=== PATIENT | female | born 1950 | race Caucasian/White ===

== ENCOUNTER 2019-11-15 00:20 | Inpatient (IN) ==
[2019-11-15 00:57] LABS: Basophils # 0.1 10*3/uL (0.0-0.2); Basophils % 1.1 % (0.0-0.8); Eosinophils # 0.5 10*3/uL (0.0-0.87); Eosinophils % 4.7 % (0.00-10.9); Hematocrit 37.4 VOL% (35.7-47.0); Hemoglobin 12.4 GM/DL (12.0-16.0); Immature Granulocytes % 0.5 %; Immature Granulocytes Absolute 0.05 #; Lymphocytes # 2.5 10*3/uL (1.4-4.0); Lymphocytes % 24.4 % (21.3-54.2); Mean Corpuscular HGB Conc 33.2 GM/DL (32-36); Mean Corpuscular Volume 84.8 FL (87-102); Neutrophils % 59.3 % (38.7-73.9); Platelet Count 252 T/CUMM (130-400); Red Blood Count 4.41 MC/CUMM (3.8-5.5); Red Cell Distribution Width 11.9 % (9.3-17.3); White Blood Count 10.2 T/CUMM (4-12)
[2019-11-15] MEDS ORDERED: ALBUTEROL 2.5 MG/3 ML NEB RESP TX STA (01:04)
[2019-11-15 01:08] LABS: INR 0.9; PT Patient Result 10.2 SECS (9.8-11.9)
[2019-11-15 01:17] LABS: ABG Base Excess -1.9 MMOL/L (-2.5-2.5); ABG HCO3 22.9 MMOL/L (20-26); ABG Oxygen Saturation 98.8 % (95-100); ABG PCO2 48.8 MM HG (35-48); ABG PH 7.315 (7.35-7.45); ABG TCO2 22.1 MMOL/L (23-27); Allen Test Positive
[2019-11-15 01:21] LABS: Alanine Aminotransferase 19 U/L (13-56); Albumin 3.8 G/DL (3.4-5.0); Alkaline Phosphatase 50 U/L (45-117); Aspartate Amino Transferase 15 U/L (0-37); Blood Urea Nitrogen 11 MG/DL (7-18); Calcium 8.9 MG/DL (8.5-10.1); Estimated Glom Filtration Rate 93 ML/MIN; Glucose 110 MG/DL (74-106); Osmolality,Calculated 265.4 MOS/KG (273-304); Total Protein 6.1 G/DL (6.4-8.3)
[2019-11-15 01:23] LABS: Acetaminophen < 2.0 UG/ML (10-30); Salicylate < 2.8 MG/DL (2.8-20)
[2019-11-15] MEDS ORDERED: NALOXONE 0.4 MG/ML VIAL ONE (01:30)
[2019-11-15] MEDS ORDERED: NALOXONE 0.4 MG/ML VIAL IV STA (01:30)
[2019-11-15 01:35] LABS: Apearance,Urine CLEAR (Clear); Bilirubin,Urine Negative (Negative); Blood, Urine Negative (Negative); Glucose,Urine (UA) Negative (Negative); Ketones,Urine Negative (Negative); Mucus,Urine Occasional /LPF (Occasional); Nitrite,Urine Negative (Negative); Protein,Urine Negative; RBC,Urine <1 /HPF (0-4); Urine Color Straw (Yellow); Urine Specific Gravity 1.008 (1.001-1.035); Urine Urobilinogen < 2.0 EU/DL (0.2-1.0)
[2019-11-15] MEDS ORDERED: ETOMIDATE 20 MG/10 ML VIAL IV ONE (01:35)
[2019-11-15] MEDS ORDERED: ROCURONIUM 100 MG/10 ML VIAL IV ONE (01:36)
[2019-11-15 01:37] LABS: Barbiturates Screen,Urine Negative (Negative); Benzodiazepines Screen,Urine Negative (Negative); Cannabinoid Screen,Urine Negative (Negative); Opiate Screen,Urine Positive (Negative); Phencyclidine Screen,Urine Negative (Negative)
[2019-11-15 02:09] LABS: ABG Base Excess -2.2 MMOL/L (-2.5-2.5); ABG HCO3 22.6 MMOL/L (20-26); ABG Oxygen Saturation 99.1 % (95-100); ABG PCO2 47.9 MM HG (35-48); ABG PH 7.317 (7.35-7.45); ABG TCO2 21.6 MMOL/L (23-27); Allen Test Positive; Pt O2 Delivery Device Ventilator
[2019-11-15] MEDS ORDERED: ALBUTEROL 2.5 MG/3 ML NEB RESP TX PRN (02:55)
[2019-11-15] MEDS ORDERED: ONDANSETRON 4 MG/2 ML VIAL IV PRN (02:55)
[2019-11-15] MEDS ORDERED: PROMETHAZINE 25 MG/1 ML VIAL IM PRN (02:55)
[2019-11-15] MEDS ORDERED: SODIUM CHLORIDE 0.9% 1,000 ML IV SCH (03:00)
[2019-11-15] MEDS ORDERED: LORazepam INJ 40 MG in DEXTROSE 5% 30 ML IV PRN (03:10)
[2019-11-15] MEDS ORDERED: hydrALAZINE 20 MG/1 ML VIAL IV PRN (03:11)
[2019-11-15] MEDS ORDERED: THIAMINE 200 MG/2 ML VIAL IV STA (03:16)
[2019-11-15] MEDS: ENOXAPARIN 40 MG/0.4 ML SYRINGE SUBCUT SCH (03:45)
[2019-11-15] MEDS: PANTOPRAZOLE 40 MG VIAL IV SCH (04:00)
[2019-11-15 04:35] LABS: Basophils # 0.1 10*3/uL (0.0-0.2); Basophils % 0.7 % (0.0-0.8); Eosinophils # 0.2 10*3/uL (0.0-0.87); Eosinophils % 2.3 % (0.00-10.9); Hematocrit 35.2 VOL% (35.7-47.0); Hemoglobin 11.6 GM/DL (12.0-16.0); Immature Granulocytes % 0.6 %; Immature Granulocytes Absolute 0.04 #; Lymphocytes # 1.4 10*3/uL (1.4-4.0); Lymphocytes % 19.2 % (21.3-54.2); Mean Corpuscular Volume 84.6 FL (87-102); Mean Platelet Volume 9.8 FL (9.6-12.0); Monocytes % 7.9 % (1.7-12.7); Neutrophils % 69.3 % (38.7-73.9); Platelet Count 231 T/CUMM (130-400); Red Blood Count 4.16 MC/CUMM (3.8-5.5); Red Cell Distribution Width 11.9 % (9.3-17.3)
[2019-11-15 04:40] LABS: White Blood Count 7.1 T/CUMM (4-12)
[2019-11-15 05:01] LABS: Calcium 7.4 MG/DL (8.5-10.1); Osmolality,Calculated 266.4 MOS/KG (273-304)
[2019-11-15 05:21] VITALS: BP 147/93
[2019-11-15] MEDS: THIAMINE INJ 100 MG, FOLIC ACID INJ 1 MG, MAGNESIUM SULF INJ 2 GM, MULTIVITAMIN INJ 10 ... IV SCH (05:47)
[2019-11-15] MEDS ORDERED: POTASSIUM CHLORIDE 20 MEQ TABLET PO ONE (07:02)
[2019-11-15] MEDS ORDERED: MAGNESIUM SULF RIDER 4 GM in PREMIX 1 EACH IV ONE (07:02)
[2019-11-15] MEDS ORDERED: POTASSIUM CHLORIDE 20 MEQ/15 ML UDCUP PER TUBE ONE (07:46)
[2019-11-15] MEDS: POTASSIUM CHLORIDE RIDER 10 MEQ in PREMIX 1 EACH IV SCH ×4 (07:51→11:15)
[2019-11-15] MEDS: MAGNESIUM OXIDE 400 MG TABLET PO SCH ×2 (08:21→20:09)
[2019-11-16] MEDS: THIAMINE INJ 100 MG, FOLIC ACID INJ 1 MG, MAGNESIUM SULF INJ 2 GM, MULTIVITAMIN INJ 10 ... IV SCH (03:19)
[2019-11-16 03:21] LABS: Basophils # 0.1 10*3/uL (0.0-0.2); Basophils % 0.3 % (0.0-0.8); Eosinophils % 0.2 % (0.00-10.9); Hematocrit 38.4 VOL% (35.7-47.0); Hemoglobin 13.3 GM/DL (12.0-16.0); Immature Granulocytes % 0.5 %; Lymphocytes % 5.1 % (21.3-54.2); Mean Corpuscular HGB Conc 34.6 GM/DL (32-36); Mean Corpuscular Volume 82.4 FL (87-102); Mean Platelet Volume 10.1 FL (9.6-12.0); Monocytes % 8.1 % (1.7-12.7); Neutrophils % 85.8 % (38.7-73.9); Platelet Count 283 T/CUMM (130-400); Red Blood Count 4.66 MC/CUMM (3.8-5.5); Red Cell Distribution Width 12.1 % (9.3-17.3)
[2019-11-16] MEDS: PANTOPRAZOLE 40 MG VIAL IV SCH (03:25)
[2019-11-16] MEDS: ENOXAPARIN 40 MG/0.4 ML SYRINGE SUBCUT SCH (03:26)
[2019-11-16 03:41] LABS: Albumin 3.1 G/DL (3.4-5.0); Bilirubin,Total 0.6 MG/DL (0.2-1.0); Calcium 7.8 MG/DL (8.5-10.1); Osmolality,Calculated 254.2 MOS/KG (273-304)
[2019-11-16 04:53] LABS: ABG Base Excess -1.3 MMOL/L (-2.5-2.5); ABG HCO3 23.4 MMOL/L (20-26); ABG Oxygen Saturation 98.7 % (95-100); ABG PCO2 30.2 MM HG (35-48); ABG TCO2 18.6 MMOL/L (23-27); Allen Test Positive; Pt O2 Delivery Device Ventilator
[2019-11-16] MEDS ORDERED: LORazepam 2 MG/1 ML VIAL IV PRN ×2 (09:01→13:43)
[2019-11-16] MEDS: LORazepam 2 MG/1 ML VIAL IV PRN ×4 (11:15→22:08)
[2019-11-16] MEDS ORDERED: ZIPRASIDONE 20 MG/1 ML VIAL IM ONE (11:55)
[2019-11-16] MEDS ORDERED: HALOPERIDOL 5 MG/ML AMP IM ONE ×2 (11:55→16:41)
[2019-11-16] MEDS ORDERED: FUROSEMIDE 20 MG/2 ML VIAL IV ONE (13:46)
[2019-11-16] MEDS ORDERED: methylPREDNISolone SOD SUC 125 MG/2 ML VIAL IV ONE (15:35)
[2019-11-16] MEDS ORDERED: ALBUTEROL/IPRATROPIUM 3 ML NEB RESP TX PRN (15:37)
[2019-11-16] MEDS: chlordiazePOXIDE 10 MG CAPSULE PO SCH ×2 (16:58→20:14)
[2019-11-16] MEDS: MORPHINE 4 MG/1 ML VIAL IV PRN (17:26)
[2019-11-16] MEDS: HALOPERIDOL 5 MG/ML AMP IM PRN (19:45)
[2019-11-16] MEDS: ZIPRASIDONE 20 MG/1 ML VIAL IM PRN (19:46)
[2019-11-16] MEDS: methylPREDNISolone SOD SUC 40 MG/1 ML VIAL IV SCH (23:22)
[2019-11-17] MEDS: LORazepam 2 MG/1 ML VIAL IV PRN (01:16)
[2019-11-17] MEDS: MORPHINE 4 MG/1 ML VIAL IV PRN ×2 (01:16→16:35)
[2019-11-17] MEDS: HALOPERIDOL 5 MG/ML AMP IM PRN ×3 (02:39→19:25)
[2019-11-17] MEDS: PANTOPRAZOLE 40 MG VIAL IV SCH (02:39)
[2019-11-17] MEDS: THIAMINE INJ 100 MG, FOLIC ACID INJ 1 MG, MAGNESIUM SULF INJ 2 GM, MULTIVITAMIN INJ 10 ... IV SCH ×2 (02:40→18:27)
[2019-11-17] MEDS: ZIPRASIDONE 20 MG/1 ML VIAL IM PRN ×3 (02:40→16:47)
[2019-11-17] MEDS: ENOXAPARIN 40 MG/0.4 ML SYRINGE SUBCUT SCH (02:40)
[2019-11-17 03:43] LABS: Basophils % 0.1 % (0.0-0.8); Hematocrit 36.3 VOL% (35.7-47.0); Hemoglobin 12.3 GM/DL (12.0-16.0); Immature Granulocytes % 0.5 %; Immature Granulocytes Absolute 0.07 #; Lymphocytes # 0.5 10*3/uL (1.4-4.0); Lymphocytes % 3.3 % (21.3-54.2); Mean Corpuscular HGB Conc 33.9 GM/DL (32-36); Mean Corpuscular Volume 82.7 FL (87-102); Mean Platelet Volume 10.3 FL (9.6-12.0); Monocytes % 4.8 % (1.7-12.7); Neutrophils % 91.3 % (38.7-73.9); Platelet Count 246 T/CUMM (130-400); Red Blood Count 4.39 MC/CUMM (3.8-5.5); Red Cell Distribution Width 12.5 % (9.3-17.3); White Blood Count 13.9 T/CUMM (4-12)
[2019-11-17 04:13] LABS: Albumin 2.9 G/DL (3.4-5.0); Bilirubin,Total 0.5 MG/DL (0.2-1.0); Calcium 8.2 MG/DL (8.5-10.1); Osmolality,Calculated 274.8 MOS/KG (273-304); Total Protein 6.4 G/DL (6.4-8.3)
[2019-11-17 04:32] LABS: Hypochromasia Slight; Platelet Estimate Adequate
[2019-11-17] MEDS ORDERED: GLUCAGON 1 MG VIAL IM PRN (08:19)
[2019-11-17] MEDS ORDERED: DEXTROSE 10% 250 ML BAG IV PRN (08:19)
[2019-11-17] MEDS: ALBUTEROL/IPRATROPIUM 3 ML NEB RESP TX SCH ×4 (08:21→20:02)
[2019-11-17] MEDS: methylPREDNISolone SOD SUC 40 MG/1 ML VIAL IV SCH ×3 (08:54→23:54)
[2019-11-17] MEDS: chlordiazePOXIDE 10 MG CAPSULE PO SCH ×3 (08:54→21:53)
[2019-11-17] MEDS: INSULIN REGULAR 100 UNIT/ML SUBCUT SCH ×3 (15:51→23:54)
[2019-11-18] MEDS: PANTOPRAZOLE 40 MG VIAL IV SCH (03:08)
[2019-11-18] MEDS: ENOXAPARIN 40 MG/0.4 ML SYRINGE SUBCUT SCH (03:08)
[2019-11-18 04:33] LABS: Basophils % 0.1 % (0.0-0.8); Hemoglobin 10.7 GM/DL (12.0-16.0); Immature Granulocytes % 0.6 %; Immature Granulocytes Absolute 0.08 #; Lymphocytes # 0.5 10*3/uL (1.4-4.0); Lymphocytes % 4.1 % (21.3-54.2); Mean Corpuscular HGB Conc 33.4 GM/DL (32-36); Mean Corpuscular Volume 84.7 FL (87-102); Mean Platelet Volume 10.4 FL (9.6-12.0); Monocytes % 4.6 % (1.7-12.7); Neutrophils % 90.6 % (38.7-73.9); Platelet Count 250 T/CUMM (130-400); Red Blood Count 3.78 MC/CUMM (3.8-5.5); White Blood Count 12.5 T/CUMM (4-12)
[2019-11-18 04:57] LABS: Hypochromasia 1+; Lymphocytes 1 % (20-55); Platelet Estimate Adequate; Segmented Neutrophils 97 % (50-85); Total Cells Counted 100
[2019-11-18 05:07] LABS: Albumin 2.6 G/DL (3.4-5.0); Bilirubin,Total 1.2 MG/DL (0.2-1.0); Calcium 7.8 MG/DL (8.5-10.1); Osmolality,Calculated 281.4 MOS/KG (273-304); Total Protein 5.7 G/DL (6.4-8.3)
[2019-11-18 05:15] LABS: Prealbumin 13.5 MG/DL (20-40)
[2019-11-18] MEDS: INSULIN REGULAR 100 UNIT/ML SUBCUT SCH ×2 (05:58→13:33)
[2019-11-18] MEDS: ALBUTEROL/IPRATROPIUM 3 ML NEB RESP TX SCH ×2 (07:02→13:35)
[2019-11-18] MEDS: chlordiazePOXIDE 10 MG CAPSULE PO SCH (08:13)
[2019-11-18] MEDS: methylPREDNISolone SOD SUC 40 MG/1 ML VIAL IV SCH (09:33)
[2019-11-18] MEDS: MORPHINE 4 MG/1 ML VIAL IV PRN (09:37)
[2019-11-18] MEDS ORDERED: traZODone 50 MG TABLET PO ONE (09:42)
[2019-11-18] MEDS: LORazepam 2 MG/1 ML VIAL IV PRN (09:48)
[2019-11-18] MEDS ORDERED: ESCITALOPRAM 10 MG TABLET PO SCH (10:00)
[2019-11-18] MEDS ORDERED: OXcarbazepine 300 MG TABLET PO SCH ×2 (10:00)
[2019-11-18] MEDS ORDERED: NON-FORMULARY MEDICATION (Oxcarbazepine 150 MG) PO SCH (21:00)
== END 2019-11-18 14:00 | disposition home health service (06) | DRG 917 ==
LOC: EDUNIT# → EDBD → N.ED 00:41 → N.EDINP 02:55 → SUATTDRO 02:55 → N.CVR 04:58 → N.ICU 11-17 11:17
PROVIDERS: ADMIT Internal Medicine; ATTEND Family Medicine